=== PATIENT | female | born 1995 | race Two or more races ===

== ENCOUNTER 2021-03-24 20:30 | Emergency (ER) | payer OTHER ==
[~2021-03-24] VITALS: Ht 160 cm; Wt 61.2 kg
== END 2021-03-24 22:59 | disposition home or self-care (01) ==
LOC: ER 20:30
DX: S00.531A Contusion of lip, initial encounter (principal); W18.09XA Striking against other object with subsequent fall, initial encounter; Y93.89 Activity, other specified; Y92.091 Bathroom in other non-institutional residence as the place of occurrence of the external cause; Y99.8 Other external cause status